=== PATIENT | female | born 1985 | race Caucasian/White ===

== ENCOUNTER 2019-01-19 09:34 | Emergency (ER) | payer MEDICAID ==
[~2019-01-19] VITALS: Ht 154.9 cm; Wt 81.3 kg
--- NOTE | 2019-01-19 09:54 | NUR ---
[facility] CALLED, CHICHO DODSON CALLED AND WAS TOLD ONLY A COMPLAINT WAS MADE AND NO CASE# GIVEN
--- NOTE | 2019-01-19 12:18 | NUR ---
PT'S MOM PALMA
[2019-01-19] MEDS ORDERED: HYDROcodone/acetaminophen 5mg/325mg tablet PO ONE (12:20)
--- NOTE | 2019-01-19 13:44 | NUR ---
PT MOTHER WAS CALLED, PT'S MOTHER ON HER WAY.
--- NOTE | 2019-01-19 14:02 | NUR ---
PT'S RIDE ARRIVES AT BEDSIDE. PT GIVEN INFORMATION FOR [facility].
--- NOTE | 2019-01-19 14:06 | NUR ---
PT REQUESTING TO TALK TO THE DOCTOR PRIOR TO BEING DC'D. HA MORALES IN ROOM TO DISCUSS TEST RESULTS.
[2019-01-19 14:14] VITALS: BP 112/60
== END 2019-01-19 14:17 | disposition home or self-care (01) ==
LOC: ER 09:35
DX: S20.211A Contusion of right front wall of thorax, initial encounter (principal); S40.012A Contusion of left shoulder, initial encounter; S40.011A Contusion of right shoulder, initial encounter; F41.9 Anxiety disorder, unspecified; Z90.49 Acquired absence of other specified parts of digestive tract; Z98.890 Other specified postprocedural states; Y04.8XXA Assault by other bodily force, initial encounter; Y93.89 Activity, other specified; Y92.89 Other specified places as the place of occurrence of the external cause; Y99.8 Other external cause status
CPT/HCPCS: 70360; 71045; 73030; 99283

== ENCOUNTER 2019-02-04 15:23 | Emergency (ER) | payer MEDICAID ==
[~2019-02-04] VITALS: Ht 152.4 cm; Wt 81.4 kg
[2019-02-04 15:30] VITALS: BP 130/93
[2019-02-04] MEDS ORDERED: GABA-530 PO (16:19)
== END 2019-02-04 16:46 | disposition home or self-care (01) ==
LOC: ER 15:24
DX: F10.230 Alcohol dependence with withdrawal, uncomplicated (principal); Z98.890 Other specified postprocedural states; Z90.49 Acquired absence of other specified parts of digestive tract; Y90.9 Presence of alcohol in blood, level not specified
CPT/HCPCS: 99283

== ENCOUNTER 2019-02-13 16:24 | Emergency (ER) | payer MEDICAID ==
[~2019-02-13] VITALS: Ht 154.9 cm; Wt 81.8 kg
[~2019-02-13 16:24] MED LIST: GABA-530 PO
[2019-02-13 17:00] LABS: BASOPHILS # (AUTO) 0.1 X10'3 (0-0.2); BASOPHILS % (AUTO) 1.4 % (0-1); EOSINOPHILS # (AUTO) 0.2 X10'3 (0-0.9); EOSINOPHILS % (AUTO) 2.7 % (0-6); HEMATOCRIT 44.1 % (35.0-45.0); LYMPHOCYTES # (AUTO) 1.8 X10'3 (1.1-4.8); MEAN CORPUSCULAR VOLUME 91.1 FL (78-98); MEAN PLATELET VOLUME 8.7 FL (7.4-10.4); MONOCYTES # (AUTO) 0.6 X10'3 (0-0.9); MONOCYTES % (AUTO) 9.2 % (2-12); NEUTROPHILS # (AUTO) 4.3 X10'3 (1.8-7.7); NEUTROPHILS % (AUTO) 61.7 % (42-75); PLATELET COUNT 251 X10'3 (140-440); RED BLOOD COUNT 4.84 X10'6 (4.20-5.60); RED CELL DISTRIBUTION WIDTH 13.5 % (11.5-14.5)
[2019-02-13 17:12] LABS: ALANINE AMINOTRANSFERASE 38 U/L (12-78); ALBUMIN 3.7 G/DL (3.4-5.0); ALKALINE PHOSPHATASE 73 IU/L (46-116); ANION GAP 7 (8-16); ASPARTATE AMINO TRANSFERASE 18 U/L (10-37); BILIRUBIN,TOTAL 0.2 MG/DL (0.1-1.0); BLOOD UREA NITROGEN 13 MG/DL (7-18); BUN/CREATININE RATIO 13.3 (6.6-38.0); CALCIUM 8.9 MG/DL (8.5-10.1); CHLORIDE 105 MMOL/L (99-107); CREATININE 0.98 MG/DL (0.40-0.90); GLUCOSE 100 MG/DL (70-104); POTASSIUM 4.1 MMOL/L (3.5-5.1); SODIUM 138 MMOL/L (135-145); TOTAL CARBON DIOXIDE 25.9 MMOL/L (24-32); TOTAL PROTEIN 7.3 G/DL (6.4-8.2); eGFR 65 ML/MIN
[2019-02-13 17:51] LABS: CLARITY,URINE SLIGHTLY CLOUDY (Clear); COLOR,URINE YELLOW (Yellow); GLUCOSE, URINE NEGATIVE (Neg); KETONES,URINE NEGATIVE (Neg); LEUKOCYTE ESTERASE ,URINE SMALL (Neg); NITRITES, URINE NEGATIVE (Neg); OCCULT BLOOD,URINE TRACE-LYSED (Neg); PROTEIN,URINE NEGATIVE (Neg); UROBILINOGEN,URINE 0.2 E.U/dL (0.2-1.0)
[2019-02-13 17:53] LABS: URINE HCG NEGATIVE (NEG)
[2019-02-13] MEDS ORDERED: ondansetron 4mg rapidly disintigrating tab PO ONE (18:00)
[2019-02-13] MEDS ORDERED: NO HOME MEDS (18:02)
[2019-02-13 18:04] LABS: UA COLLECTION TYPE CLN CATCH MIDSTREAM
[2019-02-13 18:12] LABS: BACTERIA,URINE 2+ /HPF (Neg); RBC,URINE 0-2 /HPF (0-2); SQUAMOUS EPITHELIAL CELL,UR MANY /LPF (FEW); WBC,URINE 0-4 /HPF (0-4)
[2019-02-13] MEDS ORDERED: ONDA4TAB6 PO (18:14)
[2019-02-13 18:27] VITALS: BP 121/71
--- NOTE | 2019-02-13 18:27 | NUR ---
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
== END 2019-02-13 18:29 | disposition home or self-care (01) ==
LOC: ER 16:25
DX: R07.89 Other chest pain (principal); R42 Dizziness and giddiness; R11.2 Nausea with vomiting, unspecified; F41.9 Anxiety disorder, unspecified; Z90.49 Acquired absence of other specified parts of digestive tract; Z98.890 Other specified postprocedural states; Z79.899 Other long term (current) drug therapy
CPT/HCPCS: 36415; 71045; 80053; 81001; 81025; 84484; 85025; 93005; 99284

== ENCOUNTER 2019-02-19 11:29 | Emergency (ER) | payer MEDICAID ==
[~2019-02-19] VITALS: Ht 152.4 cm; Wt 87.8 kg
[~2019-02-19 11:29] MED LIST changes: -GABA-530 PO; +NO HOME MEDS; +ONDA4TAB6 PO
[2019-02-19 12:33] VITALS: BP 106/59
== END 2019-02-19 12:43 | disposition home or self-care (01) ==
LOC: ER 11:30
DX: F41.0 Panic disorder [episodic paroxysmal anxiety] (principal); R06.02 Shortness of breath; F32.9 Major depressive disorder, single episode, unspecified; F15.90 Other stimulant use, unspecified, uncomplicated; Z98.890 Other specified postprocedural states; Z90.49 Acquired absence of other specified parts of digestive tract
CPT/HCPCS: 71045; 93005; 99284

== ENCOUNTER 2019-08-02 11:15 | Emergency (ER) | payer MEDICAID ==
[~2019-08-02] VITALS: Ht 152.4 cm; Wt 77.0 kg
[2019-08-02 11:50] VITALS: BP 140/83
== END 2019-08-02 12:15 | disposition home or self-care (01) ==
LOC: ER 11:16
DX: F15.90 Other stimulant use, unspecified, uncomplicated (principal); F41.9 Anxiety disorder, unspecified; F32.9 Major depressive disorder, single episode, unspecified; Z90.49 Acquired absence of other specified parts of digestive tract; Z98.890 Other specified postprocedural states; Z79.899 Other long term (current) drug therapy
CPT/HCPCS: 99281

== ENCOUNTER 2019-08-05 13:23 | Emergency (ER) | payer MEDICAID ==
[~2019-08-05] VITALS: Ht 152.4 cm; Wt 75.0 kg
[2019-08-05 13:53] VITALS: BP 108/75
== END 2019-08-05 15:27 | disposition home or self-care (01) ==
LOC: ER 13:24
DX: M25.572 Pain in left ankle and joints of left foot (principal); F41.9 Anxiety disorder, unspecified; F32.9 Major depressive disorder, single episode, unspecified; Z90.49 Acquired absence of other specified parts of digestive tract; Z98.890 Other specified postprocedural states; Z72.89 Other problems related to lifestyle; Z79.899 Other long term (current) drug therapy; W10.8XXA Fall (on) (from) other stairs and steps, initial encounter; Y93.89 Activity, other specified; Y92.89 Other specified places as the place of occurrence of the external cause; Y99.8 Other external cause status
CPT/HCPCS: 29515; 73610; 99283

== ENCOUNTER 2019-08-30 21:33 | Emergency (ER) | payer MEDICAID ==
[~2019-08-30] VITALS: Ht 152.4 cm; Wt 81.7 kg
[2019-08-30] MEDS ORDERED: acetaminophen 325mg tablet PO ONE (22:25)
[2019-08-30 22:26] LABS: CLARITY,URINE SLIGHTLY CLOUDY (Clear); COLOR,URINE YELLOW (Yellow); GLUCOSE, URINE NEGATIVE (Neg); KETONES,URINE NEGATIVE (Neg); LEUKOCYTE ESTERASE ,URINE MODERATE (Neg); NITRITES, URINE NEGATIVE (Neg); OCCULT BLOOD,URINE TRACE-INTACT (Neg); PH,URINE 5.5 (4.8-8.0); PROTEIN,URINE NEGATIVE (Neg); UROBILINOGEN,URINE 0.2 E.U/dL (0.2-1.0)
[2019-08-30 22:28] LABS: URINE HCG POSITIVE (NEG)
[2019-08-30 22:29] LABS: UA COLLECTION TYPE CLN CATCH MIDSTREAM
[2019-08-30 22:31] LABS: BACTERIA,URINE 2+ /HPF (Neg); RBC,URINE 20-50 /HPF (0-2); SQUAMOUS EPITHELIAL CELL,UR FEW /LPF (FEW); WBC,URINE 50-100 /HPF (0-4)
[2019-08-30] MEDS ORDERED: cephalexin 250mg capsule PO ONE (22:40)
--- NOTE | 2019-08-30 22:40 | NUR ---
US PAGGED SPOKE WITH LABOR RELATIONS DIRECTOR . WHO REQUESTED TO HAVE THE PATIENT START DRINKING H20 TO FILL BLADDER FOR PROCEDURE .
--- NOTE | 2019-08-31 00:10 | NUR ---
ULTRA SOUND AT BEDSIDE
[2019-08-31] MEDS ORDERED: CEPH500C5 PO (01:23)
[2019-08-31 02:00] VITALS: BP 136/62
== END 2019-08-31 01:42 | disposition home or self-care (01) ==
LOC: ER 21:34
DX: O20.0 Threatened abortion (principal); N39.0 Urinary tract infection, site not specified; F41.9 Anxiety disorder, unspecified; F32.9 Major depressive disorder, single episode, unspecified; Z37.9 Outcome of delivery, unspecified; Z90.49 Acquired absence of other specified parts of digestive tract; Z98.890 Other specified postprocedural states; Z79.899 Other long term (current) drug therapy
CPT/HCPCS: 36415; 76801; 81001; 81025; 84702; 87088; 93976; 99284

== ENCOUNTER 2019-09-05 18:49 | Emergency (ER) | payer MEDICAID ==
[~2019-09-05] VITALS: Ht 152.4 cm; Wt 82.9 kg
[~2019-09-05 18:49] MED LIST changes: +CEPH500C5 PO
[2019-09-05 19:30] LABS: CLARITY,URINE CLOUDY (Clear); COLOR,URINE YELLOW (Yellow); GLUCOSE, URINE NEGATIVE (Neg); KETONES,URINE NEGATIVE (Neg); LEUKOCYTE ESTERASE ,URINE NEGATIVE (Neg); NITRITES, URINE NEGATIVE (Neg); OCCULT BLOOD,URINE LARGE (Neg); PH,URINE 5.5 (4.8-8.0); PROTEIN,URINE 30 mg/dl (Neg); UROBILINOGEN,URINE 0.2 E.U/dL (0.2-1.0)
[2019-09-05 19:30] LABS: BASOPHILS # (AUTO) 0.1 X10'3 (0-0.2); BASOPHILS % (AUTO) 0.8 % (0-1); EOSINOPHILS # (AUTO) 0.1 X10'3 (0-0.9); EOSINOPHILS % (AUTO) 1.7 % (0-6); HEMATOCRIT 39.2 % (35.0-45.0); HEMOGLOBIN 13.3 g/dl (12.0-16.0); LYMPHOCYTES # (AUTO) 1.5 X10'3 (1.1-4.8); LYMPHOCYTES % (AUTO) 17.2 % (21-51); MEAN CORPUSCULAR HEMOGLOBIN 30.5 PG (27.0-31.0); MEAN CORPUSCULAR HGB CONC 33.8 g/dL (33.0-36.5); MEAN PLATELET VOLUME 8.6 FL (7.4-10.4); MONOCYTES # (AUTO) 0.7 X10'3 (0-0.9); MONOCYTES % (AUTO) 8.2 % (2-12); NEUTROPHILS # (AUTO) 6.5 X10'3 (1.8-7.7); NEUTROPHILS % (AUTO) 72.1 % (42-75); PLATELET COUNT 273 X10'3 (140-440); RED BLOOD COUNT 4.35 X10'6 (4.20-5.60); RED CELL DISTRIBUTION WIDTH 13.3 % (11.5-14.5)
[2019-09-05 19:31] LABS: URINE HCG POSITIVE (NEG)
[2019-09-05 19:42] LABS: ALANINE AMINOTRANSFERASE 32 U/L (12-78); ALBUMIN 3.5 G/DL (3.4-5.0); ALBUMIN/GLOBULIN RATIO 0.9 (1.1-1.5); ALKALINE PHOSPHATASE 74 IU/L (46-116); ANION GAP 9 (8-16); ASPARTATE AMINO TRANSFERASE 14 U/L (10-37); BILIRUBIN,TOTAL 0.3 MG/DL (0.1-1.0); BLOOD UREA NITROGEN 14 MG/DL (7-18); BUN/CREATININE RATIO 14.9 (6.6-38.0); CALCIUM 8.7 MG/DL (8.5-10.1); CHLORIDE 106 MMOL/L (99-107); CREATININE 0.94 MG/DL (0.40-0.90); GLUCOSE 101 MG/DL (70-104); LIPASE 190 U/L (73-393); POTASSIUM 3.9 MMOL/L (3.5-5.1); SODIUM 139 MMOL/L (135-145); TOTAL CARBON DIOXIDE 23.9 MMOL/L (24-32); TOTAL PROTEIN 7.4 G/DL (6.4-8.2); eGFR 68 ML/MIN
[2019-09-05 19:47] LABS: UA COLLECTION TYPE CLN CATCH MIDSTREAM
[2019-09-05 19:48] LABS: BACTERIA,URINE FEW /HPF (Neg); RBC,URINE 50-100 /HPF (0-2); SQUAMOUS EPITHELIAL CELL,UR MANY /LPF (FEW); WBC,URINE 0-4 /HPF (0-4)
[2019-09-05 20:44] LABS: BETA HCG,QUANTITATIVE 442 mIU/ml
[2019-09-05 22:07] VITALS: BP 116/71
== END 2019-09-05 22:14 | disposition home or self-care (01) ==
LOC: ER 18:50
DX: O03.9 Complete or unspecified spontaneous abortion without complication (principal); Z3A.01 Less than 8 weeks gestation of pregnancy; Z90.49 Acquired absence of other specified parts of digestive tract; Z98.890 Other specified postprocedural states
CPT/HCPCS: 36415; 76801; 80053; 81001; 81025; 83690; 84702; 85025; 86900; 86901; 93976; 99284

== ENCOUNTER 2019-09-21 18:03 | Emergency (ER) | payer MEDICAID ==
[~2019-09-21] VITALS: Ht 152.4 cm; Wt 81.8 kg
[~2019-09-21 18:03] MED LIST changes: -CEPH500C5 PO
[2019-09-21 18:08] VITALS: BP 143/78
[2019-09-21] MEDS ORDERED: famotidine 20mg tablet PO ONE (18:25)
[2019-09-21] MEDS ORDERED: predniSONE 20 mg tablet PO ONE (18:25)
[2019-09-21] MEDS ORDERED: PRED20TA PO (18:44)
== END 2019-09-21 18:52 | disposition home or self-care (01) ==
LOC: ER 18:04
DX: T78.40XA Allergy, unspecified, initial encounter (principal); F41.9 Anxiety disorder, unspecified; F32.9 Major depressive disorder, single episode, unspecified; Z90.49 Acquired absence of other specified parts of digestive tract; Z98.890 Other specified postprocedural states; Z72.89 Other problems related to lifestyle; Z79.899 Other long term (current) drug therapy; X58.XXXA Exposure to other specified factors, initial encounter
CPT/HCPCS: 99283; J7512

== ENCOUNTER 2020-03-11 17:57 | Emergency (ER) | payer MEDICAID ==
[~2020-03-11] VITALS: Ht 152.4 cm; Wt 82.2 kg
[2020-03-11 18:20] VITALS: BP 134/88
[2020-03-11 19:23] LABS: BASOPHILS # (AUTO) 0.1 X10'3 (0-0.2); EOSINOPHILS # (AUTO) 0.2 X10'3 (0-0.9); EOSINOPHILS % (AUTO) 2.6 % (0-6); HEMATOCRIT 40.3 % (35.0-45.0); HEMOGLOBIN 13.7 g/dl (12.0-16.0); LYMPHOCYTES # (AUTO) 1.9 X10'3 (1.1-4.8); LYMPHOCYTES % (AUTO) 28.5 % (21-51); MEAN CORPUSCULAR HGB CONC 33.8 g/dL (33.0-36.5); MEAN CORPUSCULAR VOLUME 88.6 FL (78-98); MEAN PLATELET VOLUME 8.7 FL (7.4-10.4); MONOCYTES # (AUTO) 0.6 X10'3 (0-0.9); MONOCYTES % (AUTO) 8.2 % (2-12); NEUTROPHILS # (AUTO) 4.1 X10'3 (1.8-7.7); NEUTROPHILS % (AUTO) 59.7 % (42-75); PLATELET COUNT 239 X10'3 (140-440); RED BLOOD COUNT 4.55 X10'6 (4.20-5.60); RED CELL DISTRIBUTION WIDTH 12.9 % (11.5-14.5); WHITE BLOOD COUNT 6.8 X10'3 (4.5-11.0)
[2020-03-11 19:26] LABS: CLARITY,URINE CLEAR (Clear); COLOR,URINE YELLOW (Yellow); GLUCOSE, URINE NEGATIVE (Neg); KETONES,URINE NEGATIVE (Neg); LEUKOCYTE ESTERASE ,URINE TRACE (Neg); NITRITES, URINE NEGATIVE (Neg); OCCULT BLOOD,URINE NEGATIVE (Neg); PH,URINE 7.5 (4.8-8.0); PROTEIN,URINE NEGATIVE (Neg); UA COLLECTION TYPE CLN CATCH MIDSTREAM; UROBILINOGEN,URINE 0.2 E.U/dL (0.2-1.0)
[2020-03-11 19:27] LABS: URINE HCG NEGATIVE (NEG)
[2020-03-11 19:34] LABS: ALANINE AMINOTRANSFERASE 36 U/L (12-78); ALBUMIN 3.8 G/DL (3.4-5.0); ALBUMIN/GLOBULIN RATIO 1.1 (1.1-1.5); ALKALINE PHOSPHATASE 69 IU/L (46-116); ANION GAP 8 (8-16); ASPARTATE AMINO TRANSFERASE 13 U/L (10-37); BILIRUBIN,TOTAL 0.1 MG/DL (0.1-1.0); BLOOD UREA NITROGEN 13 MG/DL (7-18); BUN/CREATININE RATIO 17.6 (6.6-38.0); CHLORIDE 106 MMOL/L (99-107); CREATININE 0.74 MG/DL (0.40-0.90); GLUCOSE 112 MG/DL (70-104); POTASSIUM 3.9 MMOL/L (3.5-5.1); SODIUM 140 MMOL/L (135-145); TOTAL PROTEIN 7.4 G/DL (6.4-8.2); eGFR 89 ML/MIN
[2020-03-11 19:38] LABS: BACTERIA,URINE FEW /HPF (Neg); MUCUS STRANDS FEW /LPF (Neg); RBC,URINE NONE SEEN /HPF (0-2); SQUAMOUS EPITHELIAL CELL,UR MODERATE /LPF (FEW)
[2020-03-11] MEDS ORDERED: CefTRIAXone 250MG IM Kit w/LIDOcaine IM STA (19:44)
[2020-03-11] MEDS ORDERED: DOXYCYCLINE 100MG CAPSULE PO ONE (19:45)
[2020-03-11] MEDS ORDERED: METR-159 PO (20:14)
[2020-03-11] MEDS ORDERED: DOXY100C2 PO (20:14)
== END 2020-03-11 20:36 | disposition home or self-care (01) ==
LOC: ER 17:58
DX: N73.9 Female pelvic inflammatory disease, unspecified (principal); A59.01 Trichomonal vulvovaginitis; Z90.49 Acquired absence of other specified parts of digestive tract; Z79.899 Other long term (current) drug therapy; Z91.030 Bee allergy status
CPT/HCPCS: 36415; 80053; 81001; 81025; 85025; 87088; 87210; 87491; 87591; 96372; 99283; J0696; Q0112

== ENCOUNTER 2020-03-22 09:00 | Emergency (ER) | payer MEDICAID ==
[~2020-03-22] VITALS: Ht 152.4 cm; Wt 87.0 kg
[~2020-03-22 09:00] MED LIST changes: +DOXY100C2 PO
[2020-03-22 09:34] LABS: CLARITY,URINE CLOUDY (Clear); COLOR,URINE YELLOW (Yellow); GLUCOSE, URINE NEGATIVE (Neg); KETONES,URINE NEGATIVE (Neg); LEUKOCYTE ESTERASE ,URINE NEGATIVE (Neg); NITRITES, URINE NEGATIVE (Neg); OCCULT BLOOD,URINE NEGATIVE (Neg); PH,URINE 5.5 (4.8-8.0); PROTEIN,URINE NEGATIVE (Neg); UROBILINOGEN,URINE 0.2 E.U/dL (0.2-1.0)
[2020-03-22 09:35] LABS: UA COLLECTION TYPE CLN CATCH MIDSTREAM
[2020-03-22 09:46] LABS: BACTERIA,URINE 2+ /HPF (Neg); RBC,URINE 0-2 /HPF (0-2); SQUAMOUS EPITHELIAL CELL,UR FEW /LPF (FEW); TRANSITIONAL EPI CELLS,URINE MODERATE /HPF; WBC,URINE 0-4 /HPF (0-4)
[2020-03-22] MEDS ORDERED: normal saline 1000ML IV soln IVB ONE (09:55)
[2020-03-22] MEDS ORDERED: ondansetron/PF 4mg/2ml inj IV ONE (09:55)
[2020-03-22 10:40] LABS: URINE HCG NEGATIVE (NEG)
[2020-03-22 10:44] LABS: BASOPHILS # (AUTO) 0.1 X10'3 (0-0.2); BASOPHILS % (AUTO) 1.1 % (0-1); EOSINOPHILS # (AUTO) 0.2 X10'3 (0-0.9); EOSINOPHILS % (AUTO) 2.9 % (0-6); HEMATOCRIT 43.7 % (35.0-45.0); HEMOGLOBIN 14.5 g/dl (12.0-16.0); LYMPHOCYTES # (AUTO) 1.6 X10'3 (1.1-4.8); LYMPHOCYTES % (AUTO) 26.3 % (21-51); MEAN CORPUSCULAR HEMOGLOBIN 29.5 PG (27.0-31.0); MEAN CORPUSCULAR HGB CONC 33.1 g/dL (33.0-36.5); MEAN CORPUSCULAR VOLUME 89.1 FL (78-98); MEAN PLATELET VOLUME 8.8 FL (7.4-10.4); MONOCYTES # (AUTO) 0.6 X10'3 (0-0.9); NEUTROPHILS # (AUTO) 3.5 X10'3 (1.8-7.7); NEUTROPHILS % (AUTO) 59.7 % (42-75); PLATELET COUNT 242 X10'3 (140-440); WHITE BLOOD COUNT 5.9 X10'3 (4.5-11.0)
[2020-03-22 10:58] LABS: ALANINE AMINOTRANSFERASE 38 U/L (12-78); ALBUMIN 3.9 G/DL (3.4-5.0); ALKALINE PHOSPHATASE 61 IU/L (46-116); ANION GAP 10 (8-16); ASPARTATE AMINO TRANSFERASE 20 U/L (10-37); BILIRUBIN,TOTAL 0.3 MG/DL (0.1-1.0); BLOOD UREA NITROGEN 18 MG/DL (7-18); BUN/CREATININE RATIO 20.2 (6.6-38.0); CALCIUM 9.2 MG/DL (8.5-10.1); CHLORIDE 106 MMOL/L (99-107); CREATININE 0.89 MG/DL (0.40-0.90); GLUCOSE 89 MG/DL (70-104); POTASSIUM 4.3 MMOL/L (3.5-5.1); SODIUM 141 MMOL/L (135-145); TOTAL CARBON DIOXIDE 25.5 MMOL/L (24-32); TOTAL PROTEIN 7.7 G/DL (6.4-8.2); eGFR 72 ML/MIN
[2020-03-22] MEDS ORDERED: iohexol 300mg/ml 100ml inj. ONE (11:01)
[2020-03-22] MEDS ORDERED: ketorolac trometh. 30mg/ml inj. IV ONE (11:05)
[2020-03-22] MEDS ORDERED: HYDROcodone/acetaminophen 5mg/325mg tablet PO ONE (12:20)
[2020-03-22 12:29] VITALS: BP 101/61
== END 2020-03-22 12:31 | disposition home or self-care (01) ==
LOC: ER 09:00
DX: R10.84 Generalized abdominal pain (principal); R30.9 Painful micturition, unspecified; M54.89 Other dorsalgia; F41.9 Anxiety disorder, unspecified; F32.9 Major depressive disorder, single episode, unspecified; Z90.89 Acquired absence of other organs; Z90.49 Acquired absence of other specified parts of digestive tract; Z72.89 Other problems related to lifestyle; Z79.899 Other long term (current) drug therapy
CPT/HCPCS: 36415; 74177; 80053; 81001; 81025; 85025; 96361; 96374; 96375; 99285; J1885; J2405; J7030; Q9967

== ENCOUNTER 2020-04-19 10:13 | Emergency (ER) | payer MEDICAID ==
[~2020-04-19] VITALS: Ht 152.4 cm; Wt 78.4 kg
[~2020-04-19 10:13] MED LIST changes: -DOXY100C2 PO
[2020-04-19 11:00] VITALS: BP 128/86
[2020-04-19] MEDS ORDERED: orphenadrine citrate 60mg/2ml inj. IM ONE (11:05)
[2020-04-19] MEDS ORDERED: ketorolac tromethamine 15mg/ml inj. IM ONE (11:05)
[2020-04-19] MEDS ORDERED: IBUP-1984 PO (11:09)
[2020-04-19] MEDS ORDERED: CYCL-1 PO (11:09)
== END 2020-04-19 11:55 | disposition home or self-care (01) ==
LOC: ER 10:14
DX: S46.912A Strain of unspecified muscle, fascia and tendon at shoulder and upper arm level, left arm, initial encounter (principal); M25.512 Pain in left shoulder; F41.9 Anxiety disorder, unspecified; F32.9 Major depressive disorder, single episode, unspecified; Z90.89 Acquired absence of other organs; Z90.49 Acquired absence of other specified parts of digestive tract; Z98.890 Other specified postprocedural states; Z72.89 Other problems related to lifestyle; Z79.899 Other long term (current) drug therapy; X58.XXXA Exposure to other specified factors, initial encounter; Y93.89 Activity, other specified; Y92.89 Other specified places as the place of occurrence of the external cause; Y99.8 Other external cause status
CPT/HCPCS: 73030; 96372; 99284; J1885; J2360

== ENCOUNTER 2020-07-17 22:14 | Emergency (ER) | payer MEDICAID ==
[~2020-07-17] VITALS: Ht 154.9 cm; Wt 89.0 kg
[~2020-07-17 22:14] MED LIST changes: +CYCL-1 PO; +DOXY1TAB8 PO; +LIDOcaine 1% W/epiNEPHrine 1:100,000 20ml vial ONE
[2020-07-17 22:50] VITALS: BP 114/72
[2020-07-17] MEDS ORDERED: TETanus/Pertussis (Acell)/Diphther VAC/PF (Tdap-Adult) 0.5ml syringe IMVAC ONE (23:45)
[2020-07-17] MEDS ORDERED: bacitracin 15gm ointment TP ONE (23:45)
== END 2020-07-18 00:23 | disposition home or self-care (01) ==
LOC: ER 22:16
DX: S40.262A Insect bite (nonvenomous) of left shoulder, initial encounter (principal); L02.414 Cutaneous abscess of left upper limb; W57.XXXA Bitten or stung by nonvenomous insect and other nonvenomous arthropods, initial encounter; Y93.89 Activity, other specified; Y92.89 Other specified places as the place of occurrence of the external cause; Y99.8 Other external cause status
CPT/HCPCS: 10060; 90471; 90715; 99283

== ENCOUNTER 2020-09-07 07:57 | Emergency (ER) | payer MEDICAID ==
[~2020-09-07] VITALS: Ht 152.4 cm; Wt 97.0 kg
[~2020-09-07 07:57] MED LIST changes: -LIDOcaine 1% W/epiNEPHrine 1:100,000 20ml vial ONE
[2020-09-07 08:13] VITALS: BP 130/88
[2020-09-07] MEDS ORDERED: LIDOcaine 1% W/epiNEPHrine 1:200,000 10ml vial IJ ONE (09:10)
[2020-09-07] MEDS ORDERED: TETanus/Pertussis (Acell)/Diphther VAC/PF (Tdap-Adult) 0.5ml syringe IMVAC ONE (09:10)
[2020-09-07] MEDS ORDERED: CEPH250T PO (09:12)
[2020-09-07] MEDS ORDERED: SULF1TAB49 PO (09:12)
== END 2020-09-07 10:38 | disposition home or self-care (01) ==
LOC: ER 07:58
DX: L02.411 Cutaneous abscess of right axilla (principal); F41.9 Anxiety disorder, unspecified; F32.9 Major depressive disorder, single episode, unspecified; Z90.89 Acquired absence of other organs; Z90.49 Acquired absence of other specified parts of digestive tract; Z72.89 Other problems related to lifestyle; Z91.030 Bee allergy status; Z79.2 Long term (current) use of antibiotics; Z79.899 Other long term (current) drug therapy
CPT/HCPCS: 10060; 99283

== ENCOUNTER 2021-03-27 20:49 | Emergency (ER) | payer MEDICAID ==
[~2021-03-27] VITALS: Ht 152.4 cm; Wt 90.9 kg
[~2021-03-27 20:49] MED LIST changes: +CEPH250T PO
[2021-03-27 20:55] VITALS: BP 138/94
[2021-03-27 22:00] LABS: COLOR,URINE YELLOW (Yellow); GLUCOSE, URINE NEGATIVE (Neg); KETONES,URINE NEGATIVE (Neg); LEUKOCYTE ESTERASE ,URINE NEGATIVE (Neg); NITRITES, URINE NEGATIVE (Neg); OCCULT BLOOD,URINE NEGATIVE (Neg); PH,URINE 6.5 (4.8-8.0); PROTEIN,URINE NEGATIVE (Neg)
[2021-03-27 22:04] LABS: CLARITY,URINE CLEAR (Clear); UA COLLECTION TYPE CLN CATCH MIDSTREAM
[2021-03-27 22:10] LABS: URINE HCG NEGATIVE (NEG)
[2021-03-27] MEDS ORDERED: ONDA4TAB12 PO (22:12)
[2021-03-27] MEDS ORDERED: ALBU6.7H9 INH (22:12)
[2021-03-27] MEDS ORDERED: ondansetron 4mg rapidly disintigrating tab PO ONE (22:15)
== END 2021-03-27 23:25 | disposition home or self-care (01) ==
LOC: ER 20:50
DX: U07.1 COVID-19 (principal); R30.0 Dysuria; R51.9 Headache, unspecified; R11.2 Nausea with vomiting, unspecified; R19.7 Diarrhea, unspecified; F41.9 Anxiety disorder, unspecified; F32.A Depression, unspecified; Z90.89 Acquired absence of other organs; Z90.49 Acquired absence of other specified parts of digestive tract; Z72.89 Other problems related to lifestyle; Z91.030 Bee allergy status; Z79.2 Long term (current) use of antibiotics; Z79.899 Other long term (current) drug therapy
CPT/HCPCS: 71045; 71250; 81003; 81025; 87635; 99285; C9803

== ENCOUNTER 2021-10-07 11:06 | Emergency (ER) | payer MEDICAID ==
[~2021-10-07] VITALS: Ht 152.4 cm; Wt 90.9 kg
[~2021-10-07 11:06] MED LIST changes: +ALBU6.7H9 INH; -CEPH250T PO; +ONDA4TAB12 PO
[2021-10-07 11:33] VITALS: BP 151/108
[2021-10-07] MEDS ORDERED: LIDOcaine 1% W/epiNEPHrine 1:200,000 10ml vial IJ ONE (12:00)
[2021-10-07] MEDS ORDERED: TETanus/Pertussis (Acell)/Diphther VAC/PF (Tdap-Adult) 0.5ml syringe IMVAC ONE (12:00)
[2021-10-07] MEDS ORDERED: SULF1TAB49 PO (12:01)
[2021-10-07] MEDS ORDERED: CefTRIAXone 500MG IM Kit w/LIDOcaine IM ONE ×2 (12:15→12:25)
[2021-10-07] MEDS ORDERED: azithromycin 250mg tablet PO ONE (12:15)
== END 2021-10-07 12:46 | disposition home or self-care (01) ==
LOC: ER 11:07
DX: N61.1 Abscess of the breast and nipple (principal); Z91.030 Bee allergy status; Z98.890 Other specified postprocedural states; Z90.49 Acquired absence of other specified parts of digestive tract
CPT/HCPCS: 10060; 36415; 87491; 87591; 90471; 90715; 96372; 99284; J0696; A6449

== ENCOUNTER 2021-12-26 17:03 | Emergency (ER) | payer MEDICAID ==
[~2021-12-26] VITALS: Ht 152.4 cm; Wt 86.4 kg
[~2021-12-26 17:03] MED LIST changes: +ALBU6.7H14 INH; -ALBU6.7H9 INH
[2021-12-26 17:06] VITALS: BP 139/92
[2021-12-26] MEDS ORDERED: SULF1TAB45 PO (17:28)
== END 2021-12-26 17:38 | disposition home or self-care (01) ==
LOC: ER 17:05
DX: I89.1 Lymphangitis (principal); F31.9 Bipolar disorder, unspecified; F15.10 Other stimulant abuse, uncomplicated; Z90.49 Acquired absence of other specified parts of digestive tract; Z91.030 Bee allergy status; Z79.899 Other long term (current) drug therapy
CPT/HCPCS: 99283

== ENCOUNTER 2022-06-24 21:09 | Emergency (ER) | payer MEDICAID ==
[~2022-06-24] VITALS: Ht 152.4 cm; Wt 80.0 kg
[2022-06-24 21:39] LABS: BASOPHILS # (AUTO) 0.1 X10'3 (0-0.2); BASOPHILS % (AUTO) 0.9 % (0-1); EOSINOPHILS # (AUTO) 0.2 X10'3 (0-0.9); EOSINOPHILS % (AUTO) 2.9 % (0-6); HEMATOCRIT 42.1 % (35.0-45.0); HEMOGLOBIN 14.2 g/dl (12.0-16.0); LYMPHOCYTES # (AUTO) 1.8 X10'3 (1.1-4.8); LYMPHOCYTES % (AUTO) 23.1 % (21-51); MEAN CORPUSCULAR HEMOGLOBIN 29.8 PG (27.0-31.0); MEAN CORPUSCULAR HGB CONC 33.7 g/dL (33.0-36.5); MEAN CORPUSCULAR VOLUME 88.5 FL (78-98); MEAN PLATELET VOLUME 8.3 FL (7.4-10.4); MONOCYTES # (AUTO) 0.7 X10'3 (0-0.9); NEUTROPHILS # (AUTO) 5.1 X10'3 (1.8-7.7); NEUTROPHILS % (AUTO) 64.1 % (42-75); PLATELET COUNT 249 X10'3 (140-440); RED BLOOD COUNT 4.76 X10'6 (4.20-5.60); RED CELL DISTRIBUTION WIDTH 13.8 % (11.5-14.5)
[2022-06-24 21:54] LABS: ALANINE AMINOTRANSFERASE 31 U/L (12-78); ALBUMIN 3.1 G/DL (3.4-5.0); ALBUMIN/GLOBULIN RATIO 0.9 (1.1-1.5); ALKALINE PHOSPHATASE 73 IU/L (46-116); ANION GAP 9 (8-16); ASPARTATE AMINO TRANSFERASE 15 U/L (10-37); BILIRUBIN,TOTAL 0.1 MG/DL (0.1-1.0); BLOOD UREA NITROGEN 12 MG/DL (7-18); BUN/CREATININE RATIO 15.2 (10.0-20.0); CALCIUM 8.8 MG/DL (8.5-10.1); CHLORIDE 105 MMOL/L (99-107); CREATININE 0.79 MG/DL (0.40-0.90); ETHANOL < 0.010 GM/DL (0.0-0.010); GLUCOSE 110 MG/DL (70-104); LIPASE 144 U/L (73-393); SODIUM 139 MMOL/L (135-145); TOTAL CARBON DIOXIDE 25.3 MMOL/L (24-32); TOTAL PROTEIN 6.5 G/DL (6.4-8.2); eGFR 82 ML/MIN
[2022-06-24] MEDS ORDERED: CLINDAMYCIN 600mg IN NS 50ML 50 ML IV ONE (22:45)
[2022-06-24] MEDS ORDERED: metoclopramide 5 mg/ml inj IV ONE (22:45)
[2022-06-24] MEDS ORDERED: diphenhydrAMINE 50 mg/ml inj IV ONE (22:45)
[2022-06-24] MEDS ORDERED: triamcinolone acetonide 40mg/ml inj IM ONE (22:45)
[2022-06-24] MEDS ORDERED: normal saline 1000ml 1,000 ML IV ONE (22:45)
[2022-06-24] MEDS ORDERED: ketorolac trometh. 30mg/ml inj. IV ONE (22:45)
[2022-06-24] MEDS ORDERED: DEXAMETHASONE 6 MG TABLET PO ONE (22:45)
[2022-06-24 23:00] VITALS: BP 145/89
[2022-06-24 23:48] LABS: CLARITY,URINE SLIGHTLY CLOUDY (Clear); COLOR,URINE YELLOW (Yellow); GLUCOSE, URINE NEGATIVE (Neg); KETONES,URINE NEGATIVE (Neg); LEUKOCYTE ESTERASE ,URINE TRACE (Neg); NITRITES, URINE NEGATIVE (Neg); OCCULT BLOOD,URINE NEGATIVE (Neg); PROTEIN,URINE NEGATIVE (Neg); UROBILINOGEN,URINE 0.2 E.U/dL (0.2-1.0)
[2022-06-24 23:54] LABS: HCG SERUM QL POSITIVE
[2022-06-24 23:58] LABS: UA COLLECTION TYPE CLN CATCH MIDSTREAM
[2022-06-25] LABS: BACTERIA,URINE 3+ /HPF (Neg); MUCUS STRANDS FEW /LPF (Neg); SQUAMOUS EPITHELIAL CELL,UR MODERATE /LPF (FEW); WBC,URINE 0-4 /HPF (0-4)
[2022-06-25 00:07] LABS: URINE AMPHETAMINE SCREEN POSITIVE (Neg); URINE BARBITUATE SCREEN NEGATIVE (Neg); URINE BENZODIAZEPINES SCREEN NEGATIVE (Neg); URINE CANNABINOID SCREEN POSITIVE (Neg); URINE COCAINE SCREEN NEGATIVE (Neg); URINE METHADONE SCREEN NEGATIVE (Neg); URINE OPIATE SCREEN POSITIVE (Neg); URINE PHENCYCLIDINE SCREEN NEGATIVE (Neg)
[2022-06-25 01:19] LABS: BETA HCG,QUANTITATIVE 26856 mIU/ml
[2022-06-25] MEDS ORDERED: CLIN150C8 PO (01:24)
[2022-06-25] MEDS ORDERED: DIPH28.33 TOP (01:24)
[2022-06-25] MEDS ORDERED: PREN1TAB75 PO (01:24)
--- NOTE | 2022-06-28 17:33 | NUR ---
PT CALLED REGARDING LABS DRAWN ON 06/24/22, NO ANSWER, UNABLE TO LEAVE MESSAGE
--- NOTE | 2022-07-04 11:03 | NUR ---
PT CALLED REGARDING LABS DRAWN ON 06/24/22, NO ANSWER, UNABLE TO LEAVE MESSAGE
--- NOTE | 2022-07-06 11:01 | NUR ---
Naz oglesby in ED - 07/06/22 at 1106 by COTY PT CALLED REGARDING LABS DRAWN ON 06/24/22, NO ANSWER, UNABLE TO LEAVE MESSAGE; LETTER SENT TO [facility] ON RECORD
--- NOTE | 2022-07-06 11:06 | NUR ---
PT CALLED REGARDING LABS DRAWN ON 06/24/22, NO ANSWER, UNABLE TO LEAVE MESSAGE; UNABLE TO SEND LETTER SENT TO [place] ON RECORD, ADDRESS IS INCOMPLETE Addendum: 07/06/22 at 1115 by COTY CALLED ALTERNATE PHONE # TO GET PT'S CURRENT ADDRESS. NO ADDRESS IS AVAILABLE PER FAMILY MEMBER.
== END 2022-06-25 04:04 | disposition home or self-care (01) ==
LOC: ER 21:09
DX: O21.9 Vomiting of pregnancy, unspecified (principal); F15.10 Other stimulant abuse, uncomplicated; R21 Rash and other nonspecific skin eruption; B99.8 Other infectious disease; F31.9 Bipolar disorder, unspecified; Z91.030 Bee allergy status; Z79.899 Other long term (current) drug therapy; Z79.1 Long term (current) use of non-steroidal anti-inflammatories (NSAID)
CPT/HCPCS: 36415; 80053; 80305; 80320; 81001; 83690; 84702; 84703; 85025; 87077; 87088; 87186; 96365; 96372; 96375; 99284; J1200; J1885; J2765; J3301; J3490; J7030; J8540